=== PATIENT | female | born 1940 | race Caucasian/White ===

== ENCOUNTER → 2016-07-29 | Outpatient (CLI) | payer OTHER ==
--- NOTE | 2016-07-29 15:49 | DX ---
PA chest. 07/29/2016 History: PRE MRI PACEMAKER BIOTRONIC SCREENING. DO PA VIEW CHEST PER DR MI Comparison study: October 25, 2015 Findings: Dual generator left subclavian transvenous pacemaker is stable in appearance. Lungs appear clear. Heart size is normal. No pleural effusion. Impression: Pacemaker. Otherwise negative chest.
--- NOTE | 2016-07-29 16:33 | MR ---
MRI of the Cervical Spine (Without Contrast) History: Cervical pain and spondylosis. Technique: Sagittal T1 and T2 sequences. Axial T2 and gradient echo sequences. Patient has an MRI conditional pacemaker and was scanned utilizing conditional pacemaker protocol. A [employer] union contract representative was present for programming and assessment of the pacemaker before and after the procedure. Findings: C2-C3: Negative. C3-C4: Minimal disk desiccation. Moderate bilateral facet degenerative arthropathy, left greater than right, without neural impingement. C4-C5: Mild disk desiccation. Moderate to advanced left-sided facet degenerative hypertrophy. No evid ence of discrete disk prolapse or neural impingement. C5-C6: 3-mm degenerative retrolisthesis of C5 relative to C6, with marked intervertebral disk height loss and diskogenic bone marrow edema involving the inferior endplate of C5 and superior endplate of C6. There is associated moderate bilateral neural foraminal stenosis, secondary to spondylolisthesis and facet degenerative hypertrophy bilaterally. C6-C7: Disk desiccation and annular bulging, without dominant disk herniation or neural impingement. C7-T1: Disk desiccation and mild central annular bulging, again without discrete disk herniation or n eural impingement. The cervical cord maintains normal signal intensity. The craniocervical junction appears normal. Impression: 1. Multilevel cervical degenerative changes, as detailed by level above. Findings are most pronounced at C5-C6, where mild degenerative retrolisthesis of C5 is associated with diskogenic bone marrow [place] and bilateral neural foraminal stenosis. 2. Other level findings as above.
== END ==
LOC: FIMAGING 15:13
PROVIDERS: ATTEND Physician Assistant Surgical
DX: M50.30 Other cervical disc degeneration, unspecified cervical region (principal); Z95.0 Presence of cardiac pacemaker; Z01.818 Encounter for other preprocedural examination

== ENCOUNTER 2016-08-05 10:59 | Emergency (ER) | payer OTHER ==
--- NOTE | 2016-08-05 12:07 | EDPHY ---
H & P Time Seen by Provider: 08/05/16 11:42 HPI/ROS: Chief complaint. Shaking and memory loss HPI. 76-year-old female with chronic memory loss tells me that 3 days ago she had a shaking episode and then some tingling to the left side of her face. She then has had increased memory trouble remembering people's names over the weekend. Occasionally she has headaches. She had a concussion in January which resulted in some mid similar memory loss. She feels this is similar but just worse in the last few days. No focal weakness. She does have a pacemaker. ROS Constitutional. Chills on Friday, no weakness Eyes. no problems with vision ENT. no sore throat, no nasal drainage Cardiovascular. no chest pain Respiratory. no shortness of breath, no cough Abdominal. no abdominal pain, no nausea/vomiting, no diarrhea . no problems urinating MS. no calf pain/swelling, no neck/back pain, no joint pain Skin. no rash Lymph. no swollen glands Neuro. Slight tingling to the left face a few days ago. Increased memory loss having trouble remembering patient's names Past Medical/Surgical History: Atrial fibrillation, cognitive decline, possible TIA, hypertension, GERD, dyslipidemia, back surgery Social History: Single, nonsmoker, no alcohol Smoking Status: Never smoked Physical Exam: General Appearance: Alert well-developed female mild distress vital signs are stable with initial blood pressure 184/114 Eyes: Pupils equal and round no pallor or injection. ENT, Mouth: Mucous membranes are moist. Respiratory: There are no retractions, lungs are clear to auscultation. Cardiovascular: Regular rate and rhythm. Gastrointestinal: Abdomen is soft and nontender, no masses, bowel sounds normal. Speech is normal. Cranial nerves are normal. Patient speaks at conversation level. There is no pronator drift. [id number] and heel-to- james are intact bilaterally Neurological: Awake and alert, sensory and motor exams grossly normal. Skin: Warm and dry, no rashes. Musculoskeletal: Neck is supple nontender. Extremities symmetrical, full range of motion. Psychiatric: Patient is oriented X 3, there is no agitation. Constitutional: Initial Vital Signs Temperature (C) 36.3 C 08/05/16 11:01 Heart Rate 79 08/05/16 11:01 Respiratory Rate 18 08/05/16 11:01 Blood Pressure 184/114 H 08/05/16 11:01 O2 Sat (%) 94 08/05/16 11:01 O2 Delivery Mode Room Air Allergies/Adverse Reactions: aspirin [From Percodan] Allergy (Severe, Verified 01/31/16 10:06) THROAT SWELLS UP oxycodone HCl [From Percocet] Allergy (Severe, Verified 01/31/16 10:06) THROAT SWELLS UP oxycodone terephthalate [From Percodan] Allergy (Severe, Verified 01/31/16 10:06 ) THROAT SWELLS UP furosemide [From Lasix] Allergy (Intermediate, Verified 01/31/16 10:06) WEAKNESS, TREMBLING levetiracetam [From Keppra] Allergy (Intermediate, Verified 01/31/16 10:06) WEAKNESS, TREMBLING sertraline HCl [From Zoloft] Allergy (Intermediate, Verified 01/31/16 10:06) WEAKNESS, TREMBLING hydrochlorothiazide [Hydrochlorothiazide] Allergy (Verified 01/31/16 10:06) Unknown Home Medications: Medication Instructions Recorded Herbals/Supplements -Info Only 1 ea PO DAILY 03/03/14 [place]-3 Fatty Acids [Fish Oil 1000 1,000 mg PO DAILY 03/03/14 mg (*)] Rosuvastatin Calcium [Crestor 5mg] 2.5 mg PO DAILY 03/03/14 Apixaban [Eliquis] 5 mg PO BID #0 tab 03/09/14 Metoprolol Succinate Xr [Toprol Xl 50 mg PO BID #0 tab 03/09/14 50 mg (*)] Cholecalciferol Vit D3 [Vitamin D3 2,000 iunits PO DAILY 02/07/15 (*)] Gabapentin [Neurontin 100 MG (*)] 100 - 300 mg PO DAILY 02/07/15 Losartan Potassium [Cozaar] 100 mg PO DAILY 02/07/15 Omeprazole [Prilosec 20 mg] 20 mg PO DAILY@08 02/07/15 Diazepam [Valium 5 MG (*)] 5 mg PO TID PRN #60 tab 02/12/15 Hydrocodone/APAP 5/325 [[place] 1 - 2 tab PO Q6H PRN #90 tab 02/12/15 5/325 (*)] Sennosides/Docusate Sodium 1 - 2 tab PO BID PRN #60 tab 02/12/15 [Senokot-S] Diazepam [Valium 10 MG (RX)] 10 mg PO TID PRN #20 tab 01/31/16 Diazepam [Valium 5 MG (*)] 5 mg PO TID PRN #30 tab 01/31/16 Medical Decision Making - Diagnostics EKG Interpretation: EKG interpreted by me shows paced rhythm with left axis deviation. QRS is normal there is no significant ST elevation or depression. There is no arrhythmia. The rate is 72 Imaging: head ct--some atrophy but no change from previous head CT. chronic maxillary sinusitis. reviewed by me and discussed with Dr. Regan Procedures: IV normal saline, monitor ED Course/Re-evaluation: Re-evaluation 1:25 p.m. patient is stable. Her current blood pressure is 182/ 97. Patient and I discussed imaging and lab results. EKG results are also discussed. We discussed treatment plan including criteria for return and importance of follow-up and further evaluation. She expresses understanding and agreement I discussed the patient's care with Dr. Fam, neurology, who would like for the patient follow up this week for repeat EEG in the office. This is discussed with the patient and she is in agreement Differential Diagnosis: I considered CVA, intracranial bleeding, tumor, electrolyte abnormality, seizure disorder - Data Points Laboratory Results: Laboratory Results 08/05/16 11:42 08/05/16 11:42 08/05/16 08/05/16 11:42 11:42 WBC 5.53 10^3/uL 10^3/uL (3.80-9.50) RBC 4.21 10^6/uL 10^6/uL (4.18-5.33) Hgb 13.9 g/dL g/dL (12.6-16.3) Hct 40.9 % % (38.0-47.0) MCV 97.1 fL fL (81.5-99.8) MCH 33.0 pg pg (27.9-34.1) MCHC 34.0 g/dL g/dL (32.4-36.7) RDW 11.9 % % (11.5-15.2) Plt Count 229 10^3/uL 10^3/uL (150-400) MPV 10.0 fL fL (8.7-11.7) Neut % (Auto) 64.4 % % (39.3-74.2) Lymph % (Auto) 18.1 % % (15.0-45.0) [place] % (Auto) 13.0 % % (4.5-13.0) Eos % (Auto) 3.4 % % (0.6-7.6) Baso % (Auto) 0.7 % % (0.3-1.7) Nucleat RBC Rel Count 0.0 % % (0.0-0.2) Absolute Neuts (auto) 3.56 10^3/uL 10^3/uL (1.70-6.50) Absolute Lymphs (auto) 1.00 10^3/uL 10^3/uL (1.00-3.00) Absolute Monos (auto) 0.72 10^3/uL 10^3/uL (0.30-0.80) Absolute Eos (auto) 0.19 10^3/uL 10^3/uL (0.03-0.40) Absolute Basos (auto) 0.04 10^3/uL 10^3/uL (0.02-0.10) Absolute Nucleated RBC 0.00 10^3/uL 10^3/uL (0-0.01) Immature Gran % 0.4 % % (0.0-1.1) Immature Gran # 0.02 10^3/uL 10^3/uL (0.00-0.10) Sodium 140 mEq/L mEq/L (134-144) Potassium 4.4 mEq/L mEq/L (3.5-5.2) Chloride 107 mEq/L mEq/L (97-110) Carbon Dioxide 22 mEq/l mEq/l (22-31) Anion Gap 11 mEq/L mEq/L (8-16) BUN 16 mg/dL mg/dL (7-23) Creatinine 0.9 mg/dL mg/dL (0.6-1.0) Estimated GFR > 60 Glucose 89 mg/dL mg/dL (70-100) Calcium 9.6 mg/dL mg/dL (8.5-10.4) Departure - Departure Disposition: Home, Routine, Self-Care Clinical Impression: Memory loss due to medical condition Condition: Good Instructions: Cognitive Disorders after Traumatic Brain Injury (ED) Additional Instructions: Caution with driving and other dangerous activity. Call Dr. Fam is office to arrange follow-up appointment in the next 2-3 days. Return for worsening symptoms Referrals: Rose Mary Ardon MD [Primary Care Provider] - As per Instructions Kuldip Fam MD [Medical Doctor] - As per Instructions
[2016-08-05 12:13] LABS: % IMMATURE GRANULYOCYTES 0.4 % (0.0-1.1); ABSOLUTE IMMATURE GRANULOCYTES 0.02 10^3/uL (0.00-0.10); ADD DIFF? NO; ADD MORPH? NO; ADD SCAN? NO; ATYPICAL LYMPHOCYTE FLAG 0 (0-99); FRAGMENT RBC FLAG 0 (0-99); HEMATOCRIT 40.9 % (38.0-47.0); HEMOGLOBIN 13.9 g/dL (12.6-16.3); LEFT SHIFT FLG 0 (0-99); LIPEMIA HEMOLYSIS FLAG 90 (0-99); MEAN CELL VOLUME 97.1 fL (81.5-99.8); PLATELET CLUMPS FLAG 0 (0-99); PLATELET COUNT 229 10^3/uL (150-400); RED BLOOD CELL COUNT 4.21 10^6/uL (4.18-5.33); RED CELL DISTRIBUTION WIDTH 11.9 % (11.5-15.2)
[2016-08-05 12:20] LABS: ANION GAP 11 mEq/L (8-16); CALCIUM 9.6 mg/dL (8.5-10.4); CARBON DIOXIDE 22 mEq/l (22-31); CHLORIDE 107 mEq/L (97-110); CREATININE 0.9 mg/dL (0.6-1.0); GLOMERULAR FILTRATION RATE > 60; GLUCOSE 89 mg/dL (70-100); POTASSIUM 4.4 mEq/L (3.5-5.2); SODIUM 140 mEq/L (134-144)
--- NOTE | 2016-08-05 13:10 | CPEKG ---
Heart Rate: 72 RR Interval: 833 P-R Interval: 192 QRSD Interval: 78 QT Interval: 408 QTC Interval: 447 P Parks: 28 QRS Parks: -8 T Wave Parks: 42 EKG Severity - ABNORMAL ECG - EKG Impression: ATRIAL-PACED COMPLEXES Electronically Signed By: Deon Verdugo 05-Aug-2016 14:30:51
[2016-08-05 13:25] VITALS: RESP 16
[2016-08-05 14:45] VITALS: BP 186/101; PULSE 74; TEMP 97.9; O2SAT 94
== END 2016-08-05 14:44 | disposition home or self-care (01) ==
DX: R41.3 Other amnesia (principal); I10 Essential (primary) hypertension; Z79.01 Long term (current) use of anticoagulants

== ENCOUNTER → 2016-08-23 | Outpatient (CLI) | payer OTHER ==
--- NOTE | 2016-08-26 12:24 | CPEEG ---
[f rep st] ELECTROENCEPHALOGRAM 4-HOUR VIDEO-EEG. DATE OF STUDY: 08/23/2016 DATE OF INTERPRETATION: 08/26/2016. INTERPRETATION: This 4-hour video EEG recording is normal. There were no potentially epileptogenic abnormalities present in the awake or sleep recordings. During the video EEG monitoring session, the patient had a spell that began after photic stimulation and hyperventilation, described by visual disturbances with everything going black and people appearing in red, yellow, and orange, with flames coming out of their"backs". It will be described further below. This visual disturbance did not have an EEG correlate and was consistent with a nonepileptic event. REPORT: This 4-hour video EEG contains 8-9 Hz alpha to the posterior head regions. There was no abnormal activation at rest, during photic stimulation, or hyperventilation. The patient became drowsy and fell into sustained sleep during the study. There was no abnormal activation during drowsiness, sleep, or during times of arousal. There were no electrographic seizure discharges present during the study. The patient provided a document describing symptoms that occurred during the EEG. She stated that after photic and hyperventilation, she started seeing what appeared to be a visit to "Hades." She states that her vision started blackening all around her and people appeared red, yellow, and orange, flames were coming out of the top of their backs. She could not get out of the visual hallucination. This went on for several minutes or hours. At the end of the "hellish experience," It all became very white with a small amount of white. There was no EEG correlate with these symptoms. /[id number]/MODL MTDD
== END ==
LOC: FCPNEURO 08:52
PROVIDERS: ATTEND Psychiatry & Neurology Neurology
DX: R41.0 Disorientation, unspecified (principal)

== ENCOUNTER 2017-03-03 11:57 | Emergency (ER) | payer OTHER ==
[2017-03-03 12:21] VITALS: BP 126/77; PULSE 78; RESP 16; TEMP 97.7; O2SAT 98
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
== END 2017-03-03 14:34 | disposition home or self-care (01) ==
DX: S20.211A Contusion of right front wall of thorax, initial encounter (principal); I10 Essential (primary) hypertension; Z79.01 Long term (current) use of anticoagulants; V49.49XA Driver injured in collision with other motor vehicles in traffic accident, initial encounter; Y92.410 Unspecified street and highway as the place of occurrence of the external cause; Y99.8 Other external cause status

== ENCOUNTER → 2017-05-01 | Outpatient (CLI) | payer OTHER ==
[~2017-05-01] MED LIST: IOPAMIDOL (ISOVUE 370) 100 ML BTL IV ONE; IOPAMIDOL (ISOVUE-300) 100 ML BTL ONE
== END ==
LOC: FIMAGING 10:26
PROVIDERS: ATTEND Psychiatry & Neurology Neurology
DX: R41.3 Other amnesia (principal); J32.0 Chronic maxillary sinusitis
CPT/HCPCS: 70470; Q9967

== ENCOUNTER → 2017-05-09 | Outpatient (CLI) | payer OTHER | LOC: BMCIMAGING 11:23 | PROVIDERS: ATTEND Family Medicine | DX: R05 Cough (principal) ==

== ENCOUNTER → 2017-05-23 | Outpatient (CLI) | payer OTHER | LOC: FIMAGING 10:23 | PROVIDERS: ATTEND Obstetrics & Gynecology | DX: D25.1 Intramural leiomyoma of uterus (principal); N95.0 Postmenopausal bleeding ==

== ENCOUNTER 2018-07-08 05:29 | Inpatient (IN) | payer OTHER ==
--- NOTE | 2018-07-06 10:17 | PDGENHP ---
History and Physical History and Physical: Norma Olmstead'. [id number] 1940 06/23/2018 12:03 PM Page: . ... Patient: Norma Olmstead Date of : 1940 Date: 06/23/2018 12:03 PM Visit Type: Pre Op Visit This 78 year old female presents for Pre-Op. History of Present Illness: 1. Pre-Op Patient presents to clinic today for a preoperative visit for Right Total Hip Arthroplasty scheduled on 07/08/[address] Joshua. Patient has had significant history of pain and discomfort related to osteoarthritis (degenerative joint disease) and has failed conservative management in the form of over the counter analgesics (such as NSAIDs and Tylenol), at least 3 months of modified activity/ therapy and exercises (such as physical therapy, and PT created home exercises) , and supplements (such as glucosamine and chondroitin). This arthritic pain has affected patient's activities of daily living, and has affected sleep, walking/weight bearing, and other desired activities/hobbies. Patient has also had intermittent episodes of swelling and instability due to the pain, which pain has become constantly dull/achy, with intermittent sharp painful episodes. Pain and discomfort have caused patient to occasionally use ambulatory stabilizing devices (such as crutches, cane, walker, or braces). Patient has also been trying healthy diet in order to optimize weight. Pain levels vary depending on activity from 1-10 out of 10 on a pain scale. This pain/discomfort has been occurring for well over 1 year, and conservative management has no longer given sufficient relief of symptoms. Radiographs previously taken of joint clearly confirm the presence of degenerative joint disease (such as joint space narrowing, subchondral sclerosis, and peripheral osteophyte formation). Patient feels they have exhausted non-surgical treatment for their pain and discomfort, and has decided a more permanent surgical option would be best for their current situation. Patient has been informed of the possible risks and complications of the procedure, and desires to continue with the surgery. Patient has/will participate in some form of joint instruction prior to surgery in order to help optimize their recovery. Patient will be cared for by family/friends after discharged home. ALLERGIES: PERCOCET, KEPPRA. MEDICATIONS: Toprol, Eliquis, Cozaar, diazepam, Crestor, multiple vitamins. PAST SURGICAL HISTORY: Back fusion 10/27/14, pacemaker placed for atrial fibrillation by Dr. Hartman currently followed by Dr. Betancourt, eye surgery for pterygium and cataracts, knee surgery, arthroscopy of both knees with partial meniscectomies and chondroplasty, herniorrhaphies. SOCIAL HISTORY: Not a smoker. Alcohol use: 7 to 10 drinks of wine per week. Recreational drugs: None. Medications (active prior to today) Medication Name Sig Description Start Date Stop Date Refilled Rx Elsewhere COZAAR take 1 tablet (100MG) by oral route every day // Y Toprol XL 50 mg 24 hr Tab take 1 tablet (50MG) by oral route every day // Y NEXIUM take 1 capsule (20MG) by oral route every day // Y CENTRUM // Y Vicodin 5 mg-500 mg Tab take 1 tablet by oral route every 4 - 6 hours as needed for pain 07/18/2011 N Celebrex take 2 capsule by oral route 2 times every day // Y Eliquis 5 mg tablet // Y Crestor 5 mg tablet // Y gabapentin 100 mg capsule // Y Neurontin 100 mg capsule take 1 Capsule by oral route 3 times every day x 3 days , then 200mg Three times/day x 3 days, then 300mg Three times/day x 3 days and stay at theraputic dose 02/17/2015 N warfarin 5 mg tablet take 1 tablet by oral route every day 05/15/2018 N Allergies: Ingredient Reaction Medication Name Intolerance Comment TRIAMTERENE N CLONAZEPAM N FUROSEMIDE N HYDROCHLOROTHIAZIDE N LEVETIRACETAM N SERTRALINE N TRAZODONE N ACETAMINOPHEN N Percocet OXYCODONE HCL N Percocet Review of Systems System Neg/Pos Details Constitutional Negative Fatigue, Fever and Night sweats. Eyes Negative Vision loss. Respiratory Negative Cough and Dyspnea. Cardio Negative Chest pain, Cyanosis and Irregular heartbeat/palpitations. Neuro Negative Difficulty walking, Dizziness and Headache. Psych Negative Anxiety and Depression. Physical Exam Exam Findings Details Constitutional Normal No acute distress. Well developed. Respiratory Normal Inspection - Normal. Auscultation - Normal. Effort - Normal. Cardiovascular Normal Heart rate - Regular rate. Rhythm - Regular. Vascular Comments Distal vasculature of extremity is intact Musculoskeletal Comments Extremity: Right Hip Discomfort to ROM. No open wounds or signs of infection Neurological Comments sensation to light touch intact Psychiatric Normal Orientation - Oriented to time, place, person & situation. No agitation. Not anxious. Appropriate mood and affect. Assessment/Plan # Detail Type Description 1. Assessment Encounter for other preprocedural examination (Z01.818). Patient Plan The patient and I had a lengthy and detailed discussion today regarding their upcoming surgery, the surgical procedure in general, and the risks and potential complications of the surgery (including but not limited to blood loss, blood vessel injury, nerve injury, implant failure, continued pain, DVT/PE, infection, and ). We also discussed the post-operative recovery period including goals for PT and importance of home exercise. After reviewing patient's medical history, and answering all patient's concerns and questions, we will plan to proceed forward with surgery. Post-op physical therapy has been discussed and ordered, and the general rehabilitation process was discussed in detail with the patient. X-rays needed during surgery have been completed, and pre-op labs will be complete for pre-surgical screening, which will be reviewed prior to hospital admission. Post-operative medications for DVT prophylaxis, pain, and possible anti- inflammation have been discussed with patient and will be properly ordered. Patient instructed to take these medication only after discharged home after surgery. Patient instructed that Narcotic pain medication will be prescribed for use after surgery. I explained to patient we will only temporarily manage post- operative pain with narcotic pain medications and that there are side effects and addictive potential with use of such drugs. Constipation prevention and management was described in detail with patient. Patient instructed to stop all aspirin/blood thinners, NSAIDS, and certain supplements 10 days before surgery. Patient instructed to obtain a walker for ambulation, which will be needed for about 2 weeks following surgery. I described post-operative wound care in detail, including the Bandages/ dressing which will be applied after surgery, and removed when deemed necessary. I discussed with the patient the implant device we plan to use, including material, design, and known longevity of such an implant. Models were used for visual understanding as well. Patient education material and handouts were given to patient to help solidify proper understanding of their upcoming surgery and recovery. Consent for surgery has been reviewed and signed by patient, and patient understands the potential risks and benefits of procedure. A pre-op functional assessment was completed by patient today. Patient functional assessment will be assessed in future follow-up appointments as well. The patient's questions/concerns have all been answered at this appointment. Patient seen by Gomez Washburn PA-C. Attending Physician Dr. Sam Joshua MD 2. Assessment Unilateral primary osteoarthritis, right hip (M16.11). Active Patient Care Team Members Name Contact Agency Type Support Role Relationship Active Date Inactive Date Specialty Rose Mary Ardon MD Patient provider PCP Provider: Gomez Washburn 06/23/2018 1:54 PM
[2018-07-08] MEDS ORDERED: FAMOTIDINE 20 MG TAB PO ONE (06:05)
[2018-07-08] MEDS ORDERED: DEXAMETHASONE 4 MG/ML VIAL IVP ONE (06:05)
[2018-07-08] MEDS ORDERED: GABAPENTIN 300 MG CAP PO ONE (06:05)
[2018-07-08] MEDS ORDERED: ceFAZolin 2 GM/DEXTROSE 100 ML IV ONE (06:05)
[2018-07-08] MEDS ORDERED: ACETAMINOPHEN 325 MG TAB PO ONE (06:05)
[2018-07-08] MEDS ORDERED: LR 1,000 ML IV ONE (06:07)
[2018-07-08] MEDS ORDERED: LIDOCAINE 1% 2 ML INJ ID PRN (06:07)
[2018-07-08] MEDS ORDERED: ceFAZolin 1 GM/5 ML SYR ONE (06:09)
--- NOTE | 2018-07-08 07:03 | PDANEPAE ---
ANE History of Present Illness right hip pain, here for R SHIVANI ANE Past Medical History - Cardiovascular History Hx Hypertension: Yes Hx Arrhythmias: Yes Hx Chest Pain: No Hx Coronary Artery / Peripheral Vascular Disease: Yes Hx CHF / Valvular Disease: No Hx Palpitations: No Cardiovascular History Comment: PACEMAKER BIOTRONIK- 2013. A FIB FOR SICK SINUS SYNDROME. HYPERLIPIDEMIA - Pulmonary History Hx COPD: No Hx Asthma/Reactive Airway Disease: No Hx Recent Upper Respiratory Infection: No Hx Sleep Apnea: No Sleep Apnea Screening Result - Last Documented: Negative Pulmonary History Comment: PT DENIES SOB WITH STAIRS - Neurologic History Hx Cerebrovascular Accident: No Hx Seizures: No Hx Dementia: No Neurologic History Comment: TINGLING BOTTOM L FOOT OCC. SPINAL FUSION 10/2014 - Endocrine History Hx Diabetes: No - Renal History Hx Renal Disorders: No Renal History Comment: HX UTI 11/2014 - Liver History Hx Hepatic Disorders: No - Neurological & Psychiatric Hx Hx Neurological and Psychiatric Disorders: Yes Neurological / Psychiatric History Comment: PTSD - Cancer History Hx Cancer: No - Congenital Disorder History Hx Congenital Disorders: No - GI History Hx Gastrointestinal Disorders: Yes Gastrointestinal History Comment: ACID REFLUX. IBS WITH DIARRHEA. Hx of ulcer. IBS - Other Health History Other Health History: OA- KNEES AND BACK. MISSING TOOTH - Chronic Pain History Chronic Pain: Yes (LOWER BACK) - Surgical History Prior Surgeries: BACK SURG . KNEE SCOPE R. HERNIA. EYE SURG- DRY EYE. CATARACTS TANYA. SPINAL FUSION L4/5. SI JOINT RODS. PACEMAKER-BIOTRONIK. BACK SURG 2010 ANE Review of Systems Review of Systems: - Exercise capacity METS (RN): 4 METS - Pacemaker Pacemaker Type: Permanent Pacer/Defib Pacemaker Pluck Separator: SynAgileronik ANE Patient History - Allergies Allergies/Adverse Reactions: aspirin [From Percodan] Allergy (Severe, Verified 07/08/18 06:14) THROAT SWELLS UP oxycodone HCl [From Percocet] Allergy (Severe, Verified 07/08/18 06:14) THROAT SWELLS UP oxycodone terephthalate [From Percodan] Allergy (Severe, Verified 07/08/18 06:14 ) THROAT SWELLS UP furosemide [From Lasix] Allergy (Intermediate, Verified 07/08/18 06:14) WEAKNESS, TREMBLING levetiracetam [From Keppra] Allergy (Intermediate, Verified 07/08/18 06:14) WEAKNESS, TREMBLING sertraline HCl [From Zoloft] Allergy (Intermediate, Verified 07/08/18 06:14) WEAKNESS, TREMBLING hydrochlorothiazide [Hydrochlorothiazide] Allergy (Verified 07/08/18 06:14) Unknown - Home Medications Home Medications: Apixaban [Eliquis] 5 mg PO BID 06/18/18 [Last Taken Unknown] Cholecalciferol Vit D3 [Vitamin D3 (*)] 3,000 units PO DAILY 06/18/18 [Last Taken Unknown] Cyanocobalamin [Vitamin B12 (*)] 1,000 mcg PO DAILY 06/18/18 [Last Taken Unknown ] Glucosamine Sulfate [Glucosamine Sulfate 500 MG (*)] 500 mg PO DAILY 06/18/18 [ Last Taken Unknown] Herbals/Supplements -Info Only 1 ea PO DAILY 06/18/18 [Last Taken Unknown] Ibuprofen [Motrin (*)] 200 mg PO DAILY PRN 06/18/18 [Last Taken Unknown] Losartan Potassium 100 mg PO DAILY 06/18/18 [Last Taken Unknown] Magnesium Oxide [Magnesium Oxide 400 mg (*)] 400 mg PO DAILY 06/18/18 [Last Taken Unknown] [place]-3 Fatty Acids [Fish Oil 1000 mg (*)] 1,000 mg PO DAILY 06/18/18 [Last Taken Unknown] Rosuvastatin Calcium [Crestor 10mg (RX)] 2.5 mg PO DAILY 06/18/18 [Last Taken Unknown] Sotalol HCl [Sotalol] 80 mg PO BID 06/18/18 [Last Taken Unknown] amLODIPine BESYLATE [Norvasc 5 mg (*)] 5 mg PO DAILY 06/18/18 [Last Taken Unknown] - NPO status NPO Since - Liquids (Date): 07/08/18 NPO Since - Liquids (Time): 01:30 NPO Since - Solids (Date): 07/07/18 NPO Since - Solids (Time): 18:00 - Smoking Hx Smoking Status: Never smoked - Family Anes Hx Family Hx Anesthesia Complications: NONE ANE Labs/Vital Signs - Vital Signs Blood Pressure: 172/87 Heart Rate: 76 Respiratory Rate: 16 O2 Sat (%): 94 Height: 167.64 cm Weight: 72.575 kg ANE Physical Exam - Airway Neck exam: decreased ROM Mallampati Score: Class 3 Mouth exam: normal dental/mouth exam - Pulmonary Pulmonary: no respiratory distress, no rales or rhonchi - Cardiovascular Cardiovascular: regular rate and rhythym - ASA Status ASA Status: III ANE Anesthesia Plan Anesthesia Plan: GA with mask, spinal Total IV Anesthesia: Yes
[2018-07-08] MEDS ORDERED: MIDAZOLAM 2 MG/2 ML VIAL ONE (07:05)
[2018-07-08] MEDS ORDERED: MIDAZOLAM 2 MG/2 ML VIAL IVP ONE (07:06)
--- NOTE | 2018-07-08 07:18 | PDHPUP ---
History & Physical Update H&P update statement: This history and physical update is based on an assessment of the patient which was completed after admission or registration (within 24 hours), but prior to the surgery/procedure. H&P update: H&P reviewed & patient examined, no change in patient's condition since H&P completed
[2018-07-08] MEDS ORDERED: PHENYLEPHRINE HCL 100 MCG/ML SYR ONE (07:19)
[2018-07-08] MEDS ORDERED: ONDANSETRON 4 MG/2 ML VIAL ONE (07:19)
[2018-07-08] MEDS ORDERED: fentaNYL 100 MCG/2 ML INJ ONE ×3 (07:19→09:53)
[2018-07-08] MEDS ORDERED: LIDOCAINE 2% 100 MG/5 ML SYR ONE (07:19)
[2018-07-08] MEDS ORDERED: PROPOFOL/EMULSION 500 MG/50 ML BOTTLE IV ONE (07:19)
[2018-07-08] MEDS ORDERED: BUPIVACAINE/DEXTROSE 7.5MG/ML 2 ML SPINAL AMP SP ONE (07:19)
[2018-07-08] MEDS ORDERED: ROCURONIUM 50 MG/5 ML VIAL ONE ×2 (08:12)
[2018-07-08] MEDS ORDERED: HYDROmorphONE/DILAUDID 2 MG/ML INJ ONE (08:23)
[2018-07-08] MEDS ORDERED: MEPERIDINE 25 MG/0.5 ML AMP IVP PRN (08:55)
[2018-07-08] MEDS ORDERED: NALOXONE HCL 0.4 MG/ML INJ IVP PRN (08:55)
[2018-07-08] MEDS ORDERED: HYDROmorphONE/DILAUDID 2 MG/ML INJ IVP PRN (08:55)
[2018-07-08] MEDS ORDERED: PROMETHAZINE HCL 25 MG/ML INJ IVP PRN ×2 (08:55→09:21)
[2018-07-08] MEDS ORDERED: DIAZEPAM 5 MG/ML 1 ML SYR IVP PRN (08:55)
[2018-07-08] MEDS ORDERED: SUGAMMADEX SODIUM 200 MG/2 ML VIAL IVP ONE (08:57)
[2018-07-08] MEDS ORDERED: ONDANSETRON DISINTEGRATING 4 MG TAB PO PRN (09:21)
[2018-07-08] MEDS ORDERED: DIPHENOXYLATE/ATROPINE LOMOTIL 1 TAB PO PRN (09:21)
[2018-07-08] MEDS ORDERED: ONDANSETRON 4 MG/2 ML VIAL IVP PRN (09:21)
[2018-07-08] MEDS ORDERED: KETOROLAC 15 MG/1 ML SDV IVP ONE (09:21)
[2018-07-08] MEDS ORDERED: MAGNESIUM HYDROXIDE 30 ML UDCUP PO PRN (09:21)
[2018-07-08] MEDS ORDERED: diphenhydrAMINE 25 MG CAP PO PRN (09:21)
[2018-07-08] MEDS ORDERED: PROMETHAZINE HCL 25 MG SUPPR PR PRN (09:21)
[2018-07-08] MEDS ORDERED: LACTULOSE 20 GM/30 ML UDCUP PO PRN (09:21)
[2018-07-08] MEDS ORDERED: BISACODYL 10 MG SUPP PR PRN (09:21)
[2018-07-08] MEDS ORDERED: POLYETHYLENE GLYCOL 3350 17 GM PKT PO PRN (09:21)
[2018-07-08] MEDS ORDERED: TEMAZEPAM 15 MG CAP PO PRN (09:21)
[2018-07-08] MEDS ORDERED: METOCLOPRAMIDE 10 MG/2 ML VIAL IVP PRN (09:21)
[2018-07-08] MEDS ORDERED: HYDROCODONE/APAP 10/325 TAB PO PRN (09:25)
[2018-07-08] MEDS ORDERED: LR 1,000 ML IV SCH (09:30)
--- NOTE | 2018-07-08 09:33 | POSTANESTH ---
Post Anesthetic Evaluation Cardiovascular Status: Normal, Stable Respiratory Status: Normal, Stable Level of Consciousness/Mental Status: Can Participate in Eval, Mildly Sleepy, Arousable Pain Control: Adequate, Prn Tx Ordered Nausea/Vomiting Control: Adequate, Prn Tx Ordered Complications Possibly Related to Anesthesia: None Noted
[2018-07-08] MEDS ORDERED: KETOROLAC 15 MG/1 ML SDV ONE (09:53)
[2018-07-08] MEDS: fentaNYL 100 MCG/2 ML INJ IVP PRN ×2 (10:00→10:08)
[2018-07-08] MEDS ORDERED: TRANEXAMIC ACID 1,000 MG in NS 100 ML IV ONE (10:13)
[2018-07-08] MEDS ORDERED: ROPIVACAINE 0.2% 80 MG, EPINEPHrine 0.2 MG, KETOROLAC TROMETHAMINE 30 MG, morphINE 10 M... IU ONE (10:13)
--- NOTE | 2018-07-08 10:25 | GOP ---
DATE OF OPERATION: 07/08/2018 SURGEON: Sam Joshua MD PET CARE TECHNICIAN: Gomez Washburn PA-C. ANESTHESIA: General. PREOPERATIVE DIAGNOSIS: Right hip osteoarthritis. POSTOPERATIVE DIAGNOSIS: Right hip osteoarthritis. PROCEDURE PERFORMED: Right total hip arthroplasty. FINDINGS: DESCRIPTION OF PROCEDURE: The patient was taken to the operating room, administered general anesthes ia after attempted spinal anesthesia. The right hip and lower extremity were prepped and draped in n ormal sterile fashion. A direct superior approach was utilized. Skin incision was demarcated. An i ncision was made through dermal subcutaneous tissues. The fascia overlying gluteus martinez was divid ed. Blunt dissection performed down through the gluteus martinez. The piriformis tendon was reflecte d along with the superior gemelli and obturator internus. The tendons were reflected posteriorly. T hey were tacked to the subcutaneous fat to protect the sciatic nerve. The posterior hip capsule was exposed by reflecting the gluteus medius and minimus superiorly. Retractors were put in position. T he capsular cut was then made with the 15-blade and completed with a cautery. Retractors were put in the anterior capsular area. The head was dislocated. A femoral neck cut was made with the oscillat ing saw about a centimeter above the lesser trochanter. Head and neck segment was removed. The acet abular retractors were put in position. The labral tissue was debrided. The pulvinar tissue was carmen rided. The reaming commenced with a size 47, extended up to a size 53 in 2 mm increments, and the la st ream was a 54. The 54 trial cup seated nicely. We elected to seat the real cup. The real cup li ner was then impacted. This was 0 degree posterior. Thorough lavage performed. The neck segment wa s then exposed. Retractors were positioned. A box osteotome was used to remove bone into the greate r trochanteric region. A starting reamer was placed down through the canal. Reaming commenced with a size 6 and extended up to a size 9. I felt that a 9 fit appropriately. Broaching began with a siz e 7 and extended up to a size 9. A 9 trial was put in position. Intraoperative films were taken wit h a 0-degree head. We thought we were just a little short. Went up to a 2.5. This gave us a little more stability and appropriate neck length. Thorough lavage was performed. Real implants were open ed. The trials were brought out. The real stem was impacted into position. The trunnion was dried and the real head was impacted into position. Reduction was performed. The hip was felt to be stabl e through flexion, internal rotation, extension, external rotation, range of motion. Thorough lavage was performed with normal saline. Closure of the hip capsule was performed with 0 Vicryl suture, fo llowed by closure of the piriformis and external rotators with a #2 Vicryl suture, followed by closur e of the gluteal fascia with 0 Vicryl suture, followed by closure of the subcutaneous tissues with 2- 0 Vicryl suture, followed by closure of the dermis with manisha. Sterile compression dressing applie d. Abduction pillow was utilized. The patient tolerated the procedure well and was transferred back to Recovery in stable condition. N o operative complications. COMPLICATIONS: None. /[id number]/MODL
--- NOTE | 2018-07-08 10:59 | PDMN ---
Medical Necessity Medical necessity: Pt meets IP criteria as of 07/08/2018 per and [facility] S-560 ( SHIVANI); Medicare IP only procedure
[2018-07-08] MEDS: APIXABAN 5 MG TAB PO SCH ×3 (11:35→21:04)
[2018-07-08] MEDS: ACETAMINOPHEN 325 MG TAB PO SCH ×3 (11:57→23:54)
[2018-07-08] MEDS: ceFAZolin 2 GM/DEXTROSE 100 ML IV SCH ×2 (16:12→23:54)
[2018-07-08] MEDS: SENNOSIDES/DOCUSATE SODIUM TAB PO SCH (21:04)
[2018-07-08] MEDS: FAMOTIDINE 20 MG TAB PO SCH (21:05)
[2018-07-09] MEDS: ACETAMINOPHEN 325 MG TAB PO SCH ×3 (05:30→16:57)
--- NOTE | 2018-07-09 05:37 | SOAPPROG ---
ALESSIA Progress Note Assessment/Plan: Assessment: POD #1 s/p Right Total Hip Arthroplasty Plan: WBAT RLE with walker with PT/OT today Keep Aquacele Bandage on for 1 week Continue current pain med regiment Discharge: Pending Progressing. SNF vs Home Health/PT. 07/09/18 05:33 Subjective: She states she is feeling very with with no significant pain. Denies N/V, SOB, or CP. She doesnt have a discharge plan at this point in time. She migh have someone to help her at home for a few days. SHe was contemplating SNF vs Home Health/PT. Objective: Vital Signs Temp Pulse Resp BP Pulse Ox 36.8 C 76 16 102/51 L 96 07/08/18 22:43 07/08/18 22:43 07/08/18 22:43 07/08/18 22:43 07/08/18 22:43 07/07/18 07/08/18 07/09/18 05:59 05:59 05:59 Intake Total 3530 Output Total 950 Balance 2580 PHYSICAL EXAM RLE Bandage intact and clean/dry Moves foot and ankle well. Abduction pillow present DIstal Neurovasculature intact ICD10 Worksheet Patient Problems: Problems Problem Status Onset Acute encephalopathy Acute S/P lumbar spinal fusion Acute Sick sinus syndrome Acute
[2018-07-09] MEDS: APIXABAN 5 MG TAB PO SCH ×2 (08:18→21:49)
[2018-07-09] MEDS: SENNOSIDES/DOCUSATE SODIUM TAB PO SCH ×2 (08:18→21:51)
[2018-07-09] MEDS: FAMOTIDINE 20 MG TAB PO SCH ×2 (08:18→21:50)
[2018-07-09] MEDS: CYCLOBENZAPRINE 10 MG TAB PO PRN ×2 (11:10→18:40)
--- NOTE | 2018-07-09 11:23 | ASMTCMCOM ---
CM Note CM Note Notes: Pt had planned OA of hip, resides alone. PT rec Home/HHC/SNF. Pt requests referral to [facility] where she has been before. Pt believes SNF to be the safest d/c due to limited help at home. The referral is sent in [employer]. CM to follow. D/c plan of care: [facility] Friday Date Signed: 07/09/2018 11:22 AM Electronically Signed By:JUAN Davenport
[2018-07-09] MEDS: HYDROCODONE/APAP 10/325 TAB PO PRN ×2 (15:16→21:50)
--- NOTE | 2018-07-09 23:28 | PDDCSUM ---
Discharge Summary Discharge Summary: DISCHARGE SUMMARY (Orthopedic Surgery) DATE OF ADMISSION: 07/08/18 DATE OF DISCHARGE: 07/11/18 PRINCIPLE DIAGNOSES: Primary OA Right Hip PRINCIPLE AND SECONDARY PROCEDURES: Right Total Hip Arthroplasty Vital signs remained stable. Wound remained benign. Neurovascular status distal to surgical site remained intact. HOSPITAL COURSE: Post-operatively, the patient was managed according to the [facility]. The VTE prophylaxis consisted of ambulation and SCDs in addition to her previous home medications for anticoagulation. I&O monitored and remained within acceptable limits. Dressings applied and checked Daily. IV fluids given until patient taking fluids by mouth well. Physical therapy initiated on postoperative day one and continued twice a day during hospital stay. The patient progressed well after surgery. They were cleared by PT and OT prior to discharge. The patient did not receive a blood transfusion during the hospital stay. PATIENTS CONDITION ON DISCHARGE: Stable. Given the achievement of goals, the patient was ready for discharge to home DISCHARGE INSTRUCTIONS: Weight-bearing as tolerated. Ambulation and transfers with assistance, and use of walker. Detailed instructions on wound care provided to the patient. Dressing applied. Patient may remove dressing as directed. Patient will call [facility] if there is increased temperature greater than 101.5, increased redness, swelling, drainage, increased pain that is not relieved by current pain regimen as per postop orthopedic discharge instruction sheet. FOLLOW UP: The patient was instructed to return to [facility] in approximately 10-14 days for a wound inspection. In addition, radiographs will be obtained at this office visit.
[2018-07-10] MEDS: ACETAMINOPHEN 325 MG TAB PO SCH ×4 (01:07→18:24)
[2018-07-10] MEDS: HYDROCODONE/APAP 10/325 TAB PO PRN ×4 (01:18→20:40)
--- NOTE | 2018-07-10 06:06 | SOAPPROG ---
ALESSIA Progress Note Assessment/Plan: Assessment: POD #2 s/p Right Total Hip Arthroplasty Acute Blood Loss Anemia, Asymptomatic Plan: With regards to her anemia, she is symptomatic. Continue drinking plenty of water, and would advise an iron containing multivitamin daily for the next month. Her H/H appears to be trending upward. WBAT RLE with walker with PT/OT Keep Aquacele Bandage on for 1 week Continue current pain med regiment Discharge: SNF tomorrow morning 07/1107/10/18 06:03 Subjective: She is doing very well, pain is well controlled. She denies any SOB, CP, N or V. Objective: Vital Signs Temp Pulse Resp BP Pulse Ox 36.8 C 76 15 122/59 H 92 07/10/18 00:00 07/10/18 00:00 07/10/18 00:00 07/10/18 00:00 07/10/18 00:00 Laboratory Results 07/10/18 05:00 07/09/18 12:31 07/09/18 07/10/18 07/11/18 05:59 05:59 05:59 Intake Total 3930 700 Output Total 1600 100 Balance 2330 600 RLE Bandage present clean and dry Moderate leg raise strength. Moves andkle and toes well. Distal neurovasculature intact. - Pending Discharge Pending Discharge Within 24 Hours: Yes Pending Discharge Date: 07/11/18 Pending Discharge Time: 11:00 ICD10 Worksheet Patient Problems: Problems Problem Status Onset Acute encephalopathy Acute S/P lumbar spinal fusion Acute Sick sinus syndrome Acute
--- NOTE | 2018-07-10 06:16 | PDIAF ---
- Diagnosis Diagnosis: Primary OA Right Hip Code Status: Full Code - Medication Management Discharge Medications: electronically signed and located in the Home Medication List. - Orders Services needed: Registered Nurse, Physical Therapy, Occupational Therapy ( Needs Care Home Facility) Isolation Type: None Diet Recommendation: no restrictions on diet Additional Instructions: ORTHOPEDIC DISCHARGE INSTRUCTIONS Congratulations on your Total Joint Replacement Surgery. To maximize your postoperative success, please follow the instructions below: Diet and Fluids: Resume your regular diet. Drink plenty of fluids. Take multivitamins. Activity: Weight bearing as tolerated with use of a walker Bathing: May shower as tolerated. Bowel Care: If you are taking the narcotic medications prevent constipation by drinking plenty of fluids, eating fiber-rich foods, walking daily, and decreasing pain medication as quickly as possible. Use stool softeners or laxatives to prevent constipation. Please refer to constipation guidline handout given to you by [facility]. Contact your PCP if over the counter laxatives are not effective. Blood Thinners Your Blood Clot Prevention: Continue current home medications including bloodthinner Blood Clots can be a complication of a Total Joint Replacement Surgery. Signs and symptoms of a blood clot are localized pain, swelling, redness, or warmth in the calf muscle; chest pain; or shortness of breath. If you suspect a blood clot in your lower leg, call your surgeon immediately. If you experience chest pain or shortness of breath, call [id number] immediately. Blood clots can be prevented by performing some simple steps. Continue doing ankle pumps, even after returning home. Perform daily exercises, including going for walks. Wound Care: Shower with Aquacel dressing on. Remove dressing in 7 days, and keep uncovered. Please refer to dressing handout given. Do not soak incision in water (bath, hot tub, pool). Some redness, heat, swelling, and bruising around the incision area is perfectly normal. Contact your surgeon if you notice increased redness, heat, swelling; foul-smelling or increased amount of discharge/bleeding; or a high fever (greater than 101.5 F). Other Management Ice frequently throughout the day for 20-30 minutes at a time. Elevate leg above heart to decrease swelling. Fever: May use Tylenol per label instructions: Do not exceed 3000 mg in 24 hrs. Follow-up: at Clinic approximately 2 weeks following surgery. Call to confirm appointment date/time. Physical Therapy/Rehab You should begin outpatient physical therapy following discharge . Follow their guidelines for proper rehab and goals. Continue to follow the total hip precautions taught to you by physical therapy. Milind Hose You will continue wearing MILIND hose every day until your first follow-up appointment with your surgeon. Remove the MILIND hose at night before going to bed. Inspect your skin after removing them, paying particular attention to the heels, back of the knees, and the sides of the feet, to check for any skin breakdown or irritation. Put the MILIND hose back on during the day, keeping them smooth and wrinkle-free. Pain Medication Take your pain medication 20 to 30 minutes before attending physical therapy or beginning your exercises at home. This will make moving the joint much easier. Control discomfort by applying ice to the joint. The first 3-5 days following surgery may be the most painful and uncomfortable. It is important to stay ahead of the pain with your prescribed pain medications. However, after 3-5 days , you should only take Narcotic pain medications when severe pain occurs. Tylenol and other pain medications may be taken for mild to moderate pain. Sexual Activity Joint replacement patients may resume sexual activity when they feel well enough. However, hip replacement patients must maintain their hip precautions during sexual activity for 6 weeks after surgery. Antibiotics for Dental Work Avoid elective dental work for 6 weeks after joint replacement surgery. However , if a dental emergency occurs during this time frame, it is acceptable to have it taken care of. You may need to take an antibiotic prior to dental procedures for a period of time following your joint replacement surgery. Typically this is for 6 months, but may be up to two years. Please clarify this with your surgeon and your dentist. You will not need antibiotic prophylaxis for dental procedures for the rest of your life, unless you have diabetes, a previous joint infection, an autoimmune disorder such as rheumatoid arthritis or lupus requiring immunosuppressants, or are immunocompromised. If you have any of these conditions, discuss antibiotic dental prophylaxis with your surgeon and your dentist. Follow-up You will be seen in 10-14 days at [facility]. An examination of your incision, and x-rays will be taken. Please confirm date/time of appointment if needed. - Follow Up Care Current Providers and Referrals: Rose Mary Ardon MD [Primary Care Provider] - Sam Joshua MD [Medical Doctor] -
[2018-07-10] MEDS: SENNOSIDES/DOCUSATE SODIUM TAB PO SCH ×2 (09:26→20:39)
[2018-07-10] MEDS: APIXABAN 5 MG TAB PO SCH ×2 (09:27→20:39)
[2018-07-10] MEDS: FAMOTIDINE 20 MG TAB PO SCH ×2 (09:27→20:39)
[2018-07-10] MEDS ORDERED: SOTALOL HCL 80 MG TAB PO SCH (17:30)
[2018-07-10] MEDS: CYCLOBENZAPRINE 10 MG TAB PO PRN (20:39)
[2018-07-11] MEDS: ACETAMINOPHEN 325 MG TAB PO SCH ×3 (03:55→12:51)
--- NOTE | 2018-07-11 07:16 | SOAPPROG ---
SOAP Progress Note Assessment/Plan: Assessment: POD #3 s/p Right Total Hip Arthroplasty Acute Blood Loss Anemia, Asymptomatic Plan: With regards to her anemia, she is asymptomatic. Continue drinking plenty of water, and would advise an iron containing multivitamin daily for the next month. Her H/H appears to be trending upward. No further intervention at this time. WBAT RLE with walker with PT/OT Keep Aquacele Bandage on for 1 week following surgery. (May remove in 4 days) Continue current pain med regiment Discharge: SNF tomorrow morning 07/1107/11/18 07:13 Subjective: She states pain is very well controlled, and is up and moving often. She denies any light-headed, CP, SOB, or N/V. Objective: Vital Signs Temp Pulse Resp BP Pulse Ox 37.0 C 73 16 121/62 H 98 07/11/18 00:00 07/11/18 00:00 07/11/18 00:00 07/11/18 00:00 07/11/18 00:00 Laboratory Results 07/10/18 05:00 07/09/18 12:31 07/10/18 07/11/18 07/12/18 05:59 05:59 05:59 Intake Total 1700 1750 Output Total 1850 3775 Balance -150 -2025 RLU/Right Hip Aquacele dressing intact Moves ankle and toes well. Distal Neurovasculature intact. - Pending Discharge Pending Discharge Within 24 Hours: Yes Pending Discharge Date: 07/11/18 Pending Discharge Time: 11:00 ICD10 Worksheet Patient Problems: Problems Problem Status Onset Chronic Disease [facility]/Transitional Care Acute Acute encephalopathy Acute S/P lumbar spinal fusion Acute Sick sinus syndrome Acute
[2018-07-11 07:26] VITALS: BP 153/69
[2018-07-11] MEDS: APIXABAN 5 MG TAB PO SCH (08:12)
[2018-07-11] MEDS: FAMOTIDINE 20 MG TAB PO SCH (08:12)
[2018-07-11] MEDS: SENNOSIDES/DOCUSATE SODIUM TAB PO SCH (08:14)
[2018-07-11] MEDS ORDERED: amLODIPine BESYLATE 5 MG TAB PO SCH (09:00)
[2018-07-11] MEDS ORDERED: CHOLECALCIFEROL VIT D3 1,000 UNITS TAB PO SCH (09:00)
[2018-07-11] MEDS ORDERED: LOSARTAN POTASSIUM 50 MG TAB PO SCH (09:00)
[2018-07-11] MEDS ORDERED: CYANO/VITAMIN B12 1000 MCG TAB PO SCH (09:00)
[2018-07-11] MEDS ORDERED: MAGNESIUM OXIDE 400 MG TAB PO SCH (09:00)
[2018-07-11] MEDS ORDERED: ROSUVASTATIN CALCIUM 10 MG TAB PO SCH (09:00)
[2018-07-11] MEDS ORDERED: SOTALOL HCL 80 MG TAB PO SCH (09:00)
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
--- NOTE | 2018-07-11 11:26 | ASMTCMCOM ---
CM Note CM Note Notes: Pt medically stable for d/c to [facility], orders sent in [employer]. KLAUS Kaminski to call report. Elda with [facility] scheduled wc transport for 12:30. Date Signed: 07/11/2018 11:25 AM Electronically Signed By:JUAN Davenport
[2018-07-11] MEDS: HYDROCODONE/APAP 10/325 TAB PO PRN (12:26)
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
== END 2018-07-11 12:40 | DRG 470 ==
LOC: F3N 05:29
PROVIDERS: ADMIT Orthopaedic Surgery Sports Medicine; ATTEND Orthopaedic Surgery Sports Medicine
PROC: 0SR902A Replacement of Right Hip Joint with Metal on Polyethylene Synthetic Substitute, Uncemented, Open Approach (ICD-10-PCS; principal; 2018-07-08 07:15)
DX: M16.11 Unilateral primary osteoarthritis, right hip (principal); D62 Acute posthemorrhagic anemia; I48.91 Unspecified atrial fibrillation; Z79.01 Long term (current) use of anticoagulants; Z95.0 Presence of cardiac pacemaker; I10 Essential (primary) hypertension; E78.5 Hyperlipidemia, unspecified; K21.9 Gastro-esophageal reflux disease without esophagitis; K58.0 Irritable bowel syndrome with diarrhea; Z98.1 Arthrodesis status; Z85.3 Personal history of malignant neoplasm of breast; Z92.21 Personal history of antineoplastic chemotherapy; Z92.3 Personal history of irradiation
CPT/HCPCS: 97116-GP; 97161-GP; 97165-GO; 97530-GO; 97530-GP; 97535-GO; J0171; J0690; J1100; J1170; J1885; J2001; J2250; J2270; J2370; J2405; J2704; J2795; J3010

== ENCOUNTER → 2018-08-19 | Outpatient (CLI) | payer OTHER ==
[~2018-08-19] MED LIST changes: -IOPAMIDOL (ISOVUE 370) 100 ML BTL IV ONE
== END ==
LOC: FIMAGING 09:58
PROVIDERS: ATTEND Physician Assistant
DX: M43.8X6 Other specified deforming dorsopathies, lumbar region (principal); Z98.1 Arthrodesis status
CPT/HCPCS: 74177; Q9967